=== PATIENT | female | born 1955 | race Caucasian/White ===

== ENCOUNTER → 2016-08-15 | Day surgery (SDC) | payer MEDICARE, OTHER ==
[~2016-08-15] MED LIST: ALDACTONE25 MG PO; ASPIR 8181 MG PO; ATORVASTATIN CA10 MG PO; ATORVASTATIN CA20 MG PO; ATROVENT INH S2.5 ML INH; BUMETANIDE2 MG PO; BUMEX 1MG TABLET1 MG PO; CLARITIN 10MG T10 MG PO; CLARITIN10 M2 PO; COLACE100 MG PO; COREG 25MG TAB25 MG PO; COREG 3.125M3.125 MG PO; CYMBALTA60 MG PO; DESYREL 50 MG T50 MG PO; DIGITEK125 MCG PO; DULERA 100 MCG8.8 GM INH; ELIQUIS5 MG PO; ENTRESTO PO; FENOFIBRATE160 MG PO; FERRO-TIME325 MG PO; FERROUS SULFAT325 M2 PO; FUROSEMIDE20 MG PO; GLUCOTROL5 MG PO; HYDRALAZINE HCL50 MG PO; HYDROCODON-ACE1 EAC4 PO; HYDROCODONE/ACETAMIN PO; HYDROXYZINE HCL25 MG PO; IMDUR ER TAB 3030 MG PO; INCRUSE ELLI62.5 MCG INH; ISORDIL TAB 3030 MG PO; ISOSORBIDE MONO60 MG PO; JANUVIA 50 MG T50 MG PO; KLONOPIN TAB 00.5 MG PO; LANOXIN TAB0.125 MG GT; LINZESS145 MCG PO; LISINOPRIL10 MG PO; LORTAB 5-325 M1 EACH PO; LORTAB 7.5-3251 EACH PO; MEDROL DOSEPAK 24 MG PO; METOLAZONE2.5 MG PO; MIRALAX PACK 171 PKT GT; NEURONTIN 300300 MG PO; NITROSTAT 0.40.4 MG SL; PLAVIX 75 MG TA75 MG PO; PROTONIX 40 MG40 M1 PO; PROVENTIL HFA 61 INH INH; SACUBITRIL PO; SEROQUEL25 MG PO; SYMBICORT 16010.2 GM INH; TRAZODONE HCL300 MG PO; VALSARTAN PO; VENTOLIN HFA 66.7 GM INH; ZANAFLEX 4 MG TA4 MG PO; ZANAFLEX4 MG PO; ZANTAC 150 MG150 MG GT
== END | disposition home or self-care (01) ==
LOC: OR 07:28
PROVIDERS: Internal Medicine Gastroenterology
PROC: 0DBN8ZZ Excision of Sigmoid Colon, Via Natural or Artificial Opening Endoscopic (ICD-10-PCS; principal; 2016-08-15 12:15)
DX: K63.5 Polyp of colon (principal); D50.0 Iron deficiency anemia secondary to blood loss (chronic); K64.1 Second degree hemorrhoids; E66.3 Overweight; R19.5 Other fecal abnormalities; I50.9 Heart failure, unspecified; I11.0 Hypertensive heart disease with heart failure; Z88.6 Allergy status to analgesic agent; Z88.1 Allergy status to other antibiotic agents; Z85.528 Personal history of other malignant neoplasm of kidney; Z82.49 Family history of ischemic heart disease and other diseases of the circulatory system; Z83.3 Family history of diabetes mellitus; Z79.02 Long term (current) use of antithrombotics/antiplatelets; Z79.82 Long term (current) use of aspirin; Z79.899 Other long term (current) drug therapy; Z95.0 Presence of cardiac pacemaker; Z95.5 Presence of coronary angioplasty implant and graft; Z90.710 Acquired absence of both cervix and uterus
CPT/HCPCS: 82962; J7030

== ENCOUNTER 2016-08-18 16:00 | Inpatient (IN) | payer MEDICARE, OTHER ==
[~2016-08-18] VITALS: Ht 172.7 cm; Wt 78.0 kg
[~2016-08-18 16:00] MED LIST changes: -DULERA 100 MCG8.8 GM INH; -ELIQUIS5 MG PO; -FERROUS SULFAT325 M2 PO; -GLUCOTROL5 MG PO; -ISORDIL TAB 3030 MG PO; -MEDROL DOSEPAK 24 MG PO; -TRAZODONE HCL300 MG PO; -ZANAFLEX 4 MG TA4 MG PO
[2016-08-18 18:39] LABS: RED BLOOD COUNT 2.98 M/UL (4.00-5.10); WHITE BLOOD COUNT 8.3 K/UL (4.5-11.0)
[2016-08-18 18:49] LABS: HEMOGLOBIN 6.9 gm/dl (12.3-15.3)
[2016-08-19 05:53] LABS: HEMOGLOBIN 7.3 gm/dl (12.3-15.3); RED BLOOD COUNT 3.03 M/UL (4.00-5.10)
[2016-08-19 06:00] LABS: WHITE BLOOD COUNT 10.7 K/UL (4.5-11.0)
[2016-08-19 18:11] LABS: HEMOGLOBIN 7.4 gm/dl (12.3-15.3); RED BLOOD COUNT 3.11 M/UL (4.00-5.10); WHITE BLOOD COUNT 8.7 K/UL (4.5-11.0)
[2016-08-20 08:46] LABS: HEMOGLOBIN 10.7 gm/dl (12.3-15.3); RED BLOOD COUNT 4.25 M/UL (4.00-5.10); WHITE BLOOD COUNT 11.9 K/UL (4.5-11.0)
[2016-08-21 03:56] LABS: RED BLOOD COUNT 4.35 M/UL (4.00-5.10); WHITE BLOOD COUNT 9.3 K/UL (4.5-11.0)
[2016-08-22 04:27] LABS: HEMOGLOBIN 10.4 gm/dl (12.3-15.3); RED BLOOD COUNT 4.12 M/UL (4.00-5.10)
[2016-08-22 04:48] LABS: BUN/CREATININE RATIO 28 (0-10)
[2016-08-22] MEDS ORDERED: DULERA 100 MCG8.8 GM INH (13:24)
[2016-10-03] MEDS ORDERED: MEDROL DOSEPAK 24 MG PO (08:51)
[2016-12-22] MEDS ORDERED: LINZESS145 MCG PO (09:25)
== END 2016-08-22 14:13 | disposition home or self-care (01) | DRG 208 ==
LOC: ER1 16:00 → ZEROF 08-19 02:55 → MED SURG 4 08-19 02:55 → CCU 08-19 02:55 → MED SURG 4 08-21 18:00
PROVIDERS: Emergency Medicine; Internal Medicine Critical Care Medicine; Physician Assistant; ADMIT Internal Medicine
PROC: 30233N1 Transfusion of Nonautologous Red Blood Cells into Peripheral Vein, Percutaneous Approach (ICD-10-PCS; principal; 2016-08-18)
PROC: 5A1945Z Respiratory Ventilation, 24-96 Consecutive Hours (ICD-10-PCS; 2016-08-19)
PROC: 30233N1 Transfusion of Nonautologous Red Blood Cells into Peripheral Vein, Percutaneous Approach (ICD-10-PCS; 2016-08-19)
PROC: 30233N1 Transfusion of Nonautologous Red Blood Cells into Peripheral Vein, Percutaneous Approach (ICD-10-PCS; 2016-08-20)
DX: J96.01 Acute respiratory failure with hypoxia (principal); I50.23 Acute on chronic systolic (congestive) heart failure; I50.1 Left ventricular failure, unspecified; I11.0 Hypertensive heart disease with heart failure; J96.02 Acute respiratory failure with hypercapnia; D50.9 Iron deficiency anemia, unspecified; D63.8 Anemia in other chronic diseases classified elsewhere; E11.9 Type 2 diabetes mellitus without complications; M62.50 Muscle wasting and atrophy, not elsewhere classified, unspecified site; I25.10 Atherosclerotic heart disease of native coronary artery without angina pectoris; Z95.5 Presence of coronary angioplasty implant and graft; Z85.528 Personal history of other malignant neoplasm of kidney; Z90.5 Acquired absence of kidney; J44.9 Chronic obstructive pulmonary disease, unspecified; Z99.81 Dependence on supplemental oxygen; K21.9 Gastro-esophageal reflux disease without esophagitis; F41.9 Anxiety disorder, unspecified; Z90.49 Acquired absence of other specified parts of digestive tract; Z90.710 Acquired absence of both cervix and uterus; Z95.810 Presence of automatic (implantable) cardiac defibrillator; Z98.890 Other specified postprocedural states; Z88.1 Allergy status to other antibiotic agents; Z82.49 Family history of ischemic heart disease and other diseases of the circulatory system; Z87.891 Personal history of nicotine dependence; R11.10 Vomiting, unspecified; Z79.899 Other long term (current) drug therapy; Z79.82 Long term (current) use of aspirin; Z79.02 Long term (current) use of antithrombotics/antiplatelets; Z51.89 Encounter for other specified aftercare
CPT/HCPCS: 31500; 36415; 36430; 36600; 51702; 70450; 71010; 71020; 71250; 80048; 80053; 81001; 82248; 82550; 82553; 82607; 82668; 82747; 82803; 82962; 83010; 83605; 83615; 83690; 83735; 83874; 83880; 83921; 84132; 84484; 85025; 85027; 85045; 85384; 85610; 85730; 86850; 86900; 86901; 86902; 86905; 86920; 86922; 87040; 87070; 87205; 93005; 94002; 94003; 94640; 94664; 96365; 96366; 96375; 96376; 99291; A4628; C9113; J0330; J1335; J1650; J1940; J2250; J2405; J2930; J3370; J7040; J7050; P9016; Q0163

== ENCOUNTER → 2016-08-29 | Outpatient (CLI) | payer MEDICARE, OTHER ==
[~2016-08-29] MED LIST changes: +DULERA 100 MCG8.8 GM INH; +ELIQUIS5 MG PO; +FERROUS SULFAT325 M2 PO; +GLUCOTROL5 MG PO; +ISORDIL TAB 3030 MG PO; +MEDROL DOSEPAK 24 MG PO; +TRAZODONE HCL300 MG PO; +ZANAFLEX 4 MG TA4 MG PO
== END ==
LOC: HEART 5 07:22
DX: I20.9 Angina pectoris, unspecified (principal); I25.9 Chronic ischemic heart disease, unspecified; I51.7 Cardiomegaly
CPT/HCPCS: 78452; A9502; J2785

== ENCOUNTER 2016-09-19 18:14 | Observation (INO) | payer MEDICARE, OTHER ==
[~2016-09-19] VITALS: Ht 160 cm; Wt 74.8 kg
[~2016-09-19 18:14] MED LIST changes: -ELIQUIS5 MG PO; -FERROUS SULFAT325 M2 PO; -GLUCOTROL5 MG PO; -ISORDIL TAB 3030 MG PO; -MEDROL DOSEPAK 24 MG PO; -TRAZODONE HCL300 MG PO; -ZANAFLEX 4 MG TA4 MG PO
[2016-09-19 18:50] LABS: RED BLOOD COUNT 2.67 M/UL (4.00-5.10)
[2016-09-19 18:52] LABS: HEMOGLOBIN 6.6 gm/dl (12.3-15.3)
[2016-09-20 09:02] LABS: HEMOGLOBIN 7.7 gm/dl (12.3-15.3); RED BLOOD COUNT 2.99 M/UL (4.00-5.10); WHITE BLOOD COUNT 6.1 K/UL (4.5-11.0)
[2016-09-20] MEDS ORDERED: GLUCOTROL5 MG PO (17:20)
[2016-09-20] MEDS ORDERED: ZANAFLEX 4 MG TA4 MG PO (17:20)
[2016-09-20] MEDS ORDERED: ISORDIL TAB 3030 MG PO (17:21)
[2016-09-20] MEDS ORDERED: ELIQUIS5 MG PO (17:22)
[2016-09-20] MEDS ORDERED: TRAZODONE HCL300 MG PO (17:24)
[2016-09-20] MEDS ORDERED: FERROUS SULFAT325 M2 PO (17:25)
[2016-09-21 06:43] LABS: HEMOGLOBIN 8.5 gm/dl (12.3-15.3)
[2016-09-21 06:44] LABS: RED BLOOD COUNT 3.37 M/UL (4.00-5.10); WHITE BLOOD COUNT 8.3 K/UL (4.5-11.0)
[2016-09-22 06:21] LABS: HEMOGLOBIN 7.9 gm/dl (12.3-15.3); RED BLOOD COUNT 3.1 M/UL (4.00-5.10)
[2016-10-03] MEDS ORDERED: MEDROL DOSEPAK 24 MG PO (08:51)
[2016-12-22] MEDS ORDERED: LINZESS145 MCG PO (09:25)
== END 2016-09-22 21:30 | disposition home or self-care (01) ==
LOC: ER1 18:14 → ZEROF 20:18 → MED SURG 4 09-20 10:26
PROVIDERS: Emergency Medicine; Internal Medicine Cardiovascular Disease; ADMIT Internal Medicine
DX: T82.855A Stenosis of coronary artery stent, initial encounter (principal); I25.10 Atherosclerotic heart disease of native coronary artery without angina pectoris; D62 Acute posthemorrhagic anemia; D50.9 Iron deficiency anemia, unspecified; D63.1 Anemia in chronic kidney disease; I13.0 Hypertensive heart and chronic kidney disease with heart failure and stage 1 through stage 4 chronic kidney disease, or unspecified chronic kidney disease; R94.4 Abnormal results of kidney function studies; I50.20 Unspecified systolic (congestive) heart failure; N18.3 Chronic kidney disease, stage 3 (moderate); R53.1 Weakness; J44.9 Chronic obstructive pulmonary disease, unspecified; K21.9 Gastro-esophageal reflux disease without esophagitis; F41.9 Anxiety disorder, unspecified; E11.22 Type 2 diabetes mellitus with diabetic chronic kidney disease; F17.210 Nicotine dependence, cigarettes, uncomplicated; E11.9 Type 2 diabetes mellitus without complications; Z86.718 Personal history of other venous thrombosis and embolism; Z79.01 Long term (current) use of anticoagulants; Z90.710 Acquired absence of both cervix and uterus; Z95.810 Presence of automatic (implantable) cardiac defibrillator; Z90.49 Acquired absence of other specified parts of digestive tract; Z88.1 Allergy status to other antibiotic agents; Z87.891 Personal history of nicotine dependence; Z85.528 Personal history of other malignant neoplasm of kidney; Z90.5 Acquired absence of kidney; Z79.02 Long term (current) use of antithrombotics/antiplatelets; Z79.899 Other long term (current) drug therapy; Y83.1 Surgical operation with implant of artificial internal device as the cause of abnormal reaction of the patient, or of later complication, without mention of misadventure at the time of the procedure
CPT/HCPCS: 36415; 36430; 71020; 80048; 80053; 81001; 82272; 82550; 82553; 82962; 83036; 83735; 83874; 84100; 84484; 85025; 85027; 85610; 85730; 86850; 86900; 86901; 86902; 86905; 86920; 86922; 87077; 87086; 87186; 93005; 94640; 94664; 96374; 96376; 99285; C1769; C1894; G0378; J1644; J1940; J2250; J7040; P9016; Q0163; Q0177; Q9965

== ENCOUNTER → 2016-09-28 | Outpatient (CLI) | payer MEDICARE, OTHER ==
[~2016-09-28] MED LIST changes: +ELIQUIS5 MG PO; +FERROUS SULFAT325 M2 PO; +GLUCOTROL5 MG PO; +ISORDIL TAB 3030 MG PO; +MEDROL DOSEPAK 24 MG PO; +TRAZODONE HCL300 MG PO; +ZANAFLEX 4 MG TA4 MG PO
== END ==
LOC: HEART 5 10:27
DX: R06.02 Shortness of breath (principal); J20.9 Acute bronchitis, unspecified; J43.9 Emphysema, unspecified; R94.2 Abnormal results of pulmonary function studies; F17.210 Nicotine dependence, cigarettes, uncomplicated
CPT/HCPCS: 71020-FX; 94060; 94729

== ENCOUNTER → 2016-09-29 | Outpatient (CLI) | payer MEDICARE, OTHER | LOC: LBRF 15:03 | DX: R30.0 Dysuria (principal) | CPT/HCPCS: 81001; 87077; 87086; 87186 ==

== ENCOUNTER → 2016-10-03 | Day surgery (SDC) | payer MEDICARE, OTHER ==
[~2016-10-03] VITALS: Ht 165.1 cm; Wt 79.8 kg
== END | disposition home or self-care (01) ==
LOC: OR 07:37
PROVIDERS: Internal Medicine Gastroenterology
PROC: 0DJ08ZZ Inspection of Upper Intestinal Tract, Via Natural or Artificial Opening Endoscopic (ICD-10-PCS; principal; 2016-10-03 13:30)
DX: K44.9 Diaphragmatic hernia without obstruction or gangrene (principal); D50.0 Iron deficiency anemia secondary to blood loss (chronic); R19.5 Other fecal abnormalities; J44.9 Chronic obstructive pulmonary disease, unspecified; I11.0 Hypertensive heart disease with heart failure; I50.9 Heart failure, unspecified; K21.9 Gastro-esophageal reflux disease without esophagitis; E11.9 Type 2 diabetes mellitus without complications; F41.9 Anxiety disorder, unspecified; F32.9 Major depressive disorder, single episode, unspecified; F17.210 Nicotine dependence, cigarettes, uncomplicated; Z85.528 Personal history of other malignant neoplasm of kidney; Z87.440 Personal history of urinary (tract) infections; Z83.3 Family history of diabetes mellitus; Z82.49 Family history of ischemic heart disease and other diseases of the circulatory system; Z88.1 Allergy status to other antibiotic agents; Z88.5 Allergy status to narcotic agent; Z90.710 Acquired absence of both cervix and uterus; Z95.0 Presence of cardiac pacemaker; Z98.890 Other specified postprocedural states
CPT/HCPCS: 82962; J2250; J3010; J7030

== ENCOUNTER → 2016-10-30 | Outpatient (CLI) | payer MEDICARE | LOC: RAD 10:37 | DX: D50.0 Iron deficiency anemia secondary to blood loss (chronic) (principal) | CPT/HCPCS: 74000 ==

== ENCOUNTER → 2016-11-02 | Day surgery (SDC) | payer MEDICARE | END | disposition home or self-care (01) | LOC: OR 06:59 | PROVIDERS: Internal Medicine Gastroenterology | PROC: 0W3P8ZZ Control Bleeding in Gastrointestinal Tract, Via Natural or Artificial Opening Endoscopic (ICD-10-PCS; principal; 2016-11-02 10:30) | DX: T18.2XXA Foreign body in stomach, initial encounter (principal); Q27.33 Arteriovenous malformation of digestive system vessel; I11.0 Hypertensive heart disease with heart failure; I50.9 Heart failure, unspecified; D50.0 Iron deficiency anemia secondary to blood loss (chronic); E66.3 Overweight; Z88.6 Allergy status to analgesic agent; Z88.1 Allergy status to other antibiotic agents; Z85.528 Personal history of other malignant neoplasm of kidney; Z79.82 Long term (current) use of aspirin; Z79.02 Long term (current) use of antithrombotics/antiplatelets; Z79.899 Other long term (current) drug therapy; Z95.0 Presence of cardiac pacemaker; Z90.710 Acquired absence of both cervix and uterus; Z95.5 Presence of coronary angioplasty implant and graft; Y83.8 Other surgical procedures as the cause of abnormal reaction of the patient, or of later complication, without mention of misadventure at the time of the procedure | CPT/HCPCS: 94664; J7030 ==

== ENCOUNTER → 2017-02-27 | Outpatient (CLI) | payer MEDICARE, OTHER | LOC: CT 13:30 | DX: I10 Essential (primary) hypertension (principal) | CPT/HCPCS: 71250 ==

== ENCOUNTER 2021-12-24 12:10 | Inpatient (IN) | payer MEDICARE, OTHER ==
[~2021-12-24] VITALS: Ht 157.5 cm; Wt 68.0 kg
[~2021-12-24 12:10] MED LIST changes: +ASPIRIN81 MG PO; +AZELASTINE137 MCG/0.; +BROVANA15 MCG/2 M INH; +BUDESONIDE0.5 MG/2 M INH; +BUSPAR 10MG10 MG PO; +CLARITIN10 MG PO; +COLACE 100MG C100 MG PO; +DIGOXIN125 MCG PO; +DOK PLUS TABLE1 EACH PO; +ENTRESTO 24 MG1 EACH PO; +FLONASE 0.05% N16 GM; +FLOVENT DISKUS50 MCG; +GLIPIZIDE ER5 MG PO; +IMDUR ER TAB 6060 MG PO; +IPRAT-ALBUT 0.5-3 ML PO; -ISORDIL TAB 3030 MG PO; +ISOSORBIDE MONO30 MG PO; +KLONOPIN0.5 MG PO; +LANOXIN TAB0.125 MG PO; +LASIX40 MG IV; +LASIX40 MG PO; +LIPITOR TAB 2020 MG PO; +LIPITOR40 MG PO; +MUCINEX600 MG PO; +MYCOSTATIN100000 UTS PO; +NEXIUM40 MG PO; +NITROSTAT0.4 MG SL; +NORCO 7.5-3251 EACH PO; +PREDNISONE 10 M10 MG PO; +PREDNISONE 20 M20 MG PO; +PREDNISONE20 MG PO; +PROAIR HFA8.5 GM INH; +PROTONIX40 MG PO; +RANEXA500 MG PO; +TRAZODONE HCL100 MG PO; +TRICOR145 MG PO; -VENTOLIN HFA 66.7 GM INH; +ZAROXOLYN/DIUL2.5 MG PO; +ZYVOX 600 MG T600 MG PO; +[UNRECOGNIZED DRUG - CODE] TOP
[2021-12-24 13:22] LABS: HEMOGLOBIN 10.5 gm/dl (12.3-15.3); RED BLOOD COUNT 3.85 M/UL (4.00-5.10)
[2021-12-24] MEDS ORDERED: TYLENOL325 MG PO (17:02)
[2021-12-24] MEDS ORDERED: VITAMIN C500 M4 PO (17:03)
[2021-12-24] MEDS ORDERED: VENTOLIN/PROVE0.5 ML INH (17:03)
[2021-12-24] MEDS ORDERED: ALLOPURINOL100 MG PO (17:03)
[2021-12-24] MEDS ORDERED: CALCITRIOL0.25 MCG PO (17:03)
[2021-12-24] MEDS ORDERED: VITAMIN B-121000 MCG PO (17:04)
[2021-12-24] MEDS ORDERED: FERROUS SULFAT325 MG PO (17:04)
[2021-12-24] MEDS ORDERED: FOLIC ACID1 MG PO (17:04)
[2021-12-24] MEDS ORDERED: HYDROCODON-ACE1 EAC4 PO (17:05)
[2021-12-24] MEDS ORDERED: GABAPENTIN600 MG PO (17:05)
[2021-12-24] MEDS ORDERED: LINZESS145 MCG PO (17:06)
[2021-12-24] MEDS ORDERED: INSULIN LI100 UNIT/1 SQ (17:06)
[2021-12-24] MEDS ORDERED: INSULIN GL100 UNIT/3 SQ (17:06)
[2021-12-24] MEDS ORDERED: LOPERAMIDE2 MG PO (17:07)
[2021-12-24] MEDS ORDERED: NITROGLYCERIN4.9 GM PO (17:07)
[2021-12-24] MEDS ORDERED: MAG-OX 400 TAB400 MG PO (17:11)
[2021-12-24] MEDS ORDERED: POTASSIUM CHLO10 ME1 PO (17:12)
[2021-12-24] MEDS ORDERED: OMEPRAZOLE40 MG PO (17:12)
[2021-12-24] MEDS ORDERED: TOPIRAMATE25 MG PO (17:13)
[2021-12-24] MEDS ORDERED: SPIRONOLACTONE25 MG PO (17:13)
[2021-12-24] MEDS ORDERED: TORSEMIDE20 MG PO (17:14)
[2021-12-24] MEDS ORDERED: TOPIRAMATE50 MG PO (17:14)
[2021-12-25 04:27] LABS: HEMOGLOBIN 11.2 gm/dl (12.3-15.3); RED BLOOD COUNT 4.01 M/UL (4.00-5.10); WHITE BLOOD COUNT 12.4 K/UL (4.5-11.0)
[2021-12-25 11:40] LABS: HEMOGLOBIN 10.6 gm/dl (12.3-15.3); RED BLOOD COUNT 3.79 M/UL (4.00-5.10); WHITE BLOOD COUNT 15.1 K/UL (4.5-11.0)
[2021-12-26 02:28] LABS: HEMOGLOBIN 9.7 gm/dl (12.3-15.3); RED BLOOD COUNT 3.55 M/UL (4.00-5.10); WHITE BLOOD COUNT 16.6 K/UL (4.5-11.0)
[2021-12-28 02:37] LABS: HEMOGLOBIN 9.3 gm/dl (12.3-15.3); RED BLOOD COUNT 3.4 M/UL (4.00-5.10); WHITE BLOOD COUNT 12.7 K/UL (4.5-11.0)
[2021-12-31] MEDS ORDERED: MEDROL DOSEPAK 24 MG PO (12:03)
== END 2021-12-31 14:36 | disposition home or self-care (01) | DRG 291 ==
LOC: ER1 12:10 → M/S 16:18 → CDU 16:18 → M/S 19:06
PROVIDERS: Internal Medicine; Physician Assistant; Physician Assistant Medical; ADMIT Internal Medicine Infectious Disease
PROC: B24BZZZ Ultrasonography of Heart with Aorta (ICD-10-PCS; principal; 2021-12-28)
DX: I13.0 Hypertensive heart and chronic kidney disease with heart failure and stage 1 through stage 4 chronic kidney disease, or unspecified chronic kidney disease (principal); I50.43 Acute on chronic combined systolic (congestive) and diastolic (congestive) heart failure; J96.21 Acute and chronic respiratory failure with hypoxia; Z20.822 Contact with and (suspected) exposure to COVID-19; J96.22 Acute and chronic respiratory failure with hypercapnia; I47.1 Supraventricular tachycardia; Q60.0 Renal agenesis, unilateral; F11.20 Opioid dependence, uncomplicated; E87.0 Hyperosmolality and hypernatremia; I25.5 Ischemic cardiomyopathy; E87.5 Hyperkalemia; J20.9 Acute bronchitis, unspecified; I08.1 Rheumatic disorders of both mitral and tricuspid valves; D35.01 Benign neoplasm of right adrenal gland; D63.1 Anemia in chronic kidney disease; G89.29 Other chronic pain; N18.30 Chronic kidney disease, stage 3 unspecified; E11.22 Type 2 diabetes mellitus with diabetic chronic kidney disease; Z95.5 Presence of coronary angioplasty implant and graft; Z79.4 Long term (current) use of insulin; Z95.810 Presence of automatic (implantable) cardiac defibrillator; Z90.5 Acquired absence of kidney; Z90.710 Acquired absence of both cervix and uterus; Z88.8 Allergy status to other drugs, medicaments and biological substances; Z88.6 Allergy status to analgesic agent; Z87.891 Personal history of nicotine dependence; Z88.1 Allergy status to other antibiotic agents; Z88.5 Allergy status to narcotic agent; Z82.49 Family history of ischemic heart disease and other diseases of the circulatory system; I25.2 Old myocardial infarction
CPT/HCPCS: ECHO; 0240U; 36415; 36600; 71045; 71046; 80048; 80053; 81001; 82550; 82553; 82803; 82962; 83036; 83605; 83690; 83735; 83880; 84132; 84484; 85025; 85027; 87070; 87205; 93005; 93306; 94640; 94664; 94760; 96374; 96375; 97116-GP-CQ; 97161; 97165; 99285; J0696; J1940; J2920; P9047